=== PATIENT | female | born 1990 | race Hispanic/Latino ===

== ENCOUNTER 2023-05-18 04:45 | Observation (INO) | payer OTHER, SELFPAY ==
[2023-05-18 05:15] VITALS: BP 124/93; PULSE 80
[2023-05-18 05:25] VITALS: BMI 29.9
[2023-05-18 05:31] VITALS: BP 134/92; PULSE 79
[2023-05-18 05:46] VITALS: BP 132/83; PULSE 79
--- NOTE | 2023-05-18 06:00 | OBADM ---
This patient, Sanna Gilbert, admitted to the OB room Labor/Delivery/Recovery 105 for observation. Patient/family oriented to hospital policies and general routines including ID bracelet, bed and alarms, visiting hours, pain management, procedures, bathroom and other care routines, personal items, smoking policy, room service/diet, and visiting hours. Patient/Family are encouraged to report perceived risks to care and to ask questions if they do not understand what they are told or what they should do.
[2023-05-18 06:01] VITALS: BP 118/78; PULSE 86
[2023-05-18 06:15] VITALS: BP 133/96; PULSE 98
--- NOTE | 2023-06-04 00:07 | PM.OBTRLD ---
OB - Triage/Final Diagnosis Visit Information Comments/Additional reasons for admission: I have assessed the risk for this patient, Sanna Wisefederica Gilbert, and determined that she would benefit from observation care. Final Diagnosis (1) False labor: Code(s): O47.9 - False labor, unspecified Status: Acute
== END 2023-05-18 06:25 | disposition home or self-care (01) ==
PROVIDERS: Admitting Provider Obstetrics & Gynecology; Visit Provider Obstetrics & Gynecology
DX: O47.1 False labor at or after 37 completed weeks of gestation (principal); Z3A.38 38 weeks gestation of pregnancy
CPT/HCPCS: G0378; G0379

== ENCOUNTER 2023-05-29 05:18 | Inpatient (IN) | payer OTHER, SELFPAY ==
[2023-05-29] VITALS (89 sets, daily range): BP systolic 68–152; BP diastolic 47–91; PULSE 63–123; RESP 18; TEMP 36.1–37; O2SAT 84–100; BMI 33.6
[2023-05-29] MEDS: AMPICILLIN 2 GM/NS 100 ML 2 GM/100 ML BAG IVPB (07:06)
[2023-05-29] MEDS: LACTATED RINGERS 1,000 ML 125 ML IV CONT ×2 (07:08→10:00)
[2023-05-29 07:09] LABS: Basophils Percent Auto 0.3 % (0.2-1.2); Eosinophils Percent Auto 0.2 % (0-4.4); Hematocrit 36.1 % (37.0-47.0); Hemoglobin 11.9 g/dL (12.0-15.0); Immature Granulocyte Absolute 0.04 K/mm3 (0.00-0.031); Immature Granulocyte Percent A 0.4 % (0-0.5); Lymphocytes Absolute Auto 1.79 K/mm3 (0.9-3.2); Lymphocytes Percent Auto 18.8 % (18.3-44.2); Mean Corpuscular Hemoglobin 30.1 pg (26-34); Mean Corpuscular Volume 91.2 fl (80-100); Mean Platelet Volume 10.4 fl (7.4-10.4); Monocytes Absolute Auto 0.5 K/mm3 (0.1-0.6); Monocytes Percent Auto 4.7 % (2.6-8.5); Neutrophils Absolute Auto 7.2 K/mm3 (1.3-6.7); Neutrophils Percent Auto 75.6 % (45.5-73.1); Platelet Count Result 258 k/mm3 (150-375); Red Blood Count 3.96 M/mm3 (4.2-5.4); White Blood Count 9.5 K/mm3 (4.5-10.0)
--- NOTE | 2023-05-29 07:29 | LDADM ---
This patient, Sanna Gilbert, was admitted to Labor/Delivery/Recovery 104 on 05/29/23 at 05:19. Plans for labor, pain management and were discussed with patient. Patient/family oriented to hospital policies and general routines including ID bracelet, bed and alarms, visiting hours, pain management, procedures, bathroom and other care routines, personal items, smoking policy, room service/diet and guest tray routines, infant security routines, and visiting hours. Patient/Family are encouraged to report perceived risks to care and to ask questions if they do not understand what they are told or what they should do. See OBIX for further documentation.
[2023-05-29 07:32] LABS: Alanine Aminotransferase 19 U/L (6-35); Albumin Level 3.7 g/dL (3.5-5.1); Alkaline Phosphatase 161 U/L (38-126); Anion Gap 6 mmol/L (8-16); Aspartate Amino Transferase 31 U/L (14-36); Bilirubin,Total 0.5 mg/dL (0.2-1.3); Blood Urea Nitrogen 7 mg/dL (7-17); Calcium 8.9 mg/dL (8.4-10.2); Carbon Dioxide 22 mmol/L (22-30); Chloride 105 mmol/L (98-107); Estimated Glomerular Filt Rate > 60; Glucose 84 mg/dL (65-110); Potassium 4.3 mmol/L (3.4-5.0); Sodium 133 mmol/L (137-145)
[2023-05-29 08:00] LABS: HIV 1/2 Ab P24 Ag Result Negative (Negative)
--- NOTE | 2023-05-29 08:21 | WPDANESEPP ---
Anes - Eval Pre Procedure Procedure: labor pain management Date/Time: 05/29/23 08:21 Surgeon: Zhou Preop Diagnosis: pain during labor Pre Op Diagnosis: contractions Patient Data Age: 32 Gender: F Height: 1.52 m Weight: 78.1 kg Last Vital Signs Pulse 77 05/29/23 08:14 BP 118/79 05/29/23 08:14 Pulse Ox 97 05/29/23 08:13 Allergies Allergy/AdvReac Type Severity Reaction Status Date / Time No Known Allergies Allergy Verified 05/29/23 07:05 Home Medications Medication Instructions Recorded Confirmed Type ferrous sulfate 325 mg (65 mg 325 mg PO DAILY 05/29/23 05/29/23 History iron) capsule,extended release folic acid 1 mg tablet 1 mg PO DAILY 05/29/23 05/29/23 History vit no.133-ferrous 1 tablet PO DAILY 05/29/23 05/29/23 History fumarate 28 mg-folic acid 800 mcg tablet () Laboratory Tests 05/29/23 07:01 WBC 9.5 K/mm3 (4.5-10.0) RBC 3.96 L M/mm3 (4.2-5.4) Hgb 11.9 L g/dL (12.0-15.0) Hct 36.1 L % (37.0-47.0) MCV 91.2 fl (80-100) MCH 30.1 pg (26-34) MCHC 33.0 g/dl (32-36) RDW 14.0 % (11.5-14.5) Plt Count 258 k/mm3 (150-375) MPV 10.4 fl (7.4-10.4) Immature Gran % (Auto) 0.4 % (0-0.5) Neut % (Auto) 75.6 H % (45.5-73.1) Lymph % (Auto) 18.8 % (18.3-44.2) [place] % (Auto) 4.7 % (2.6-8.5) Eos % (Auto) 0.2 % (0-4.4) Baso % (Auto) 0.3 % (0.2-1.2) Lymph # (Auto) 1.79 K/mm3 (0.9-3.2) [place] # (Auto) 0.5 K/mm3 (0.1-0.6) Eos # (Auto) 0.0 K/mm3 (0-0.3) Baso # (Auto) 0.0 K/mm3 (0.0-0.1) Abs Immat Gran (auto) 0.04 H K/mm3 (0.00-0.031) Absolute Neuts (auto) 7.2 H K/mm3 (1.3-6.7) Absolute Nucleated RBC 0.0 K/mm3 (0.0-0.012) Nucleated RBC % 0.0 % (0.0-0.2) Sodium 133 L mmol/L (137-145) Potassium 4.3 mmol/L (3.4-5.0) Chloride 105 mmol/L (98-107) Carbon Dioxide 22 mmol/L (22-30) Anion Gap 6 L mmol/L (8-16) BUN 7 mg/dL (7-17) Creatinine 0.40 L mg/dL (0.7-1.0) Estim Creat Clear Calc Not Reportable Estimated GFR > 60 (59 - ) Glucose 84 mg/dL (65-110) Calcium 8.9 mg/dL (8.4-10.2) Total Bilirubin 0.5 mg/dL (0.2-1.3) AST 31 U/L (14-36) ALT 19 U/L (6-35) Alkaline Phosphatase 161 H U/L (38-126) Total Protein 7.0 g/dL (6.3-8.2) Albumin 3.7 g/dL (3.5-5.1) RPR Pending Hep Bs Antigen Pending HIV 1&2 Ab/P24 Ag 4thGn Negative (Negative) Rubella IgG Antibody Pending Blood Type B Positive Antibody Screen Negative Patient hx anesthesia problems: none Family hx anesthesia problems: none Results Review: All pre-operative results and documents have been reviewed as part of the pre-operative evaluation. [facility] Past Medical History Medical History Social History Social History Smoking status: Never smoker Second hand tobacco smoke exposure: No Substance use: never Lack of Transportation: No Lack of Food: Sometimes True Current Housing: I Have Housing Concerned About Future Housing: No Difficulty Paying Gas/Electric Bills: Decline to Answer Difficulty Paying for Meds: Decline to Answer Currently Unemployed: No Education: Decline to Answer Difficulty w/ Childcare or Family Care: Decline to Answer Spiritual care concerns: No Comments pt does not speak Frisian, no record available. previous epidural in [place]. 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 Exam Day of Procedure 05/29/23 08:21
[2023-05-29 08:36] LABS: Rapid Plasma Reagin Non-Reactive (NonReactive)
[2023-05-29 08:38] LABS: Hepatitis B Surface Antigen Negative (Negative)
[2023-05-29] MEDS: OXYTOCIN 30 UNITS/NS 500 ML 30 UNITS/500 ML BAG 999 UNITS IV CONT (11:06)
[2023-05-29] MEDS: OXYTOCIN 10 UNITS/ML VIAL (11:18)
--- NOTE | 2023-05-29 11:25 | P.HP_ITS ---
Obstetrics - Admit Note Admission Note: record reviewed. Additions to the history and/or subsequent changes in the physical findings follow. 32 y/o at 40 3/7 weeks gestation here with contractions. care at [facility] in [place]. That group does not deliver at [facility], and I am the regional vice president surgical sales physician for walk-in patients. Now comfortable with epidural. Just had SROM of clear fluid. GBS reportedly neg. AVSS NST reactive TOCO: contractions every 2-3 min ABD soft, nontender, gravid, vertex EXT nontender Pelvic: Cervix 6 cm on admission, 7 cm after epidural. Gross ROM. A: IUP at term with labor. P: Anticipate .
--- NOTE | 2023-05-29 11:25 | PM.OBPRVD ---
OB - Delivery Note Procedure Delivery date: 05/29/23 Procedure: Induction method: None Delivery monitor: External FHT and External Uterine Route of delivery: Laceration Description: Perineal - 2nd Degree Delivery repair: vicryl (3-0) Specimen: Yes (cord blood) Quantitative Blood Loss (ml): 220 Anesthesia type: Epidural Disposition: PACU Complications: None Narrative: 32 y/o at 40 3/7 weeks gestation who presented to the hospital as a walk-in patient complaining of contractions. Labor was diagnosed. She had SROM with clear fluid. She received an epidural for pain control. Her labor progressed and her cervix dilated completely. She pushed with good effort and delivered the 's head to the perineum, followed by the body. The nose and mouth were bulb suctioned. After a delay, the cord was clamped and cut. The infant was handed off the field. Cord blood was collected. The placenta delivered spontaneously and was grossly normal in appearance. The usual 3 vessel cord was noted. A second degree midline perineal laceration was sustained. This was reapproximated using 3 0 Vicryl in the usual layered fashion. Excellent hemostasis resulted as did excellent reapproximation of the normal anatomy. Needle and instrument counts were correct. The patient was taken to recovery room in stable condition. The infant went to the nursery in stable condition. I was present and scrubbed for the entire delivery. Baby Date of : 05/29/23 Time of : 11:02 Weeks of gestation at delivery: 40 Infant gender: Female Weight (pounds): 7 Weight (ounces): 5 presentation: vertex position: Left Occiput Anterior Placenta delivery description: Spontaneous and Normal Configuration Cord Vessel Description: 3 Vessels and Delayed Cord Clamping score one minute: 9 score five minutes: 9
--- NOTE | 2023-05-29 13:40 | OBPPTRN ---
Patient transferred to post room # 280 via wheelchair accompanied by spouse and . PT introductions made and plan of care discussed per post , pain management, breast feeding, daily care activities. PT and spouse both recipients of such instructions and language is a barrier to receiving instructions. Both patient and spouse speak little or no Guamanian. PT received such instructions via stratus language line. Both patient and spouse verbalized understanding of such care. Oriented to unit, room, information board, rooming in, admission packet and security measures. Patient verbalizes understanding.
[2023-05-29] MEDS: IBUPROFEN 600 MG TABLET PO (14:30)
[2023-05-29] MEDS: ACETAMINOPHEN 325 MG TABLET 650 MG PO (14:31)
[2023-05-30] MEDS: IBUPROFEN 600 MG TABLET PO ×2 (04:03→10:37)
[2023-05-30] MEDS: ACETAMINOPHEN 325 MG TABLET 650 MG PO ×2 (04:04→10:36)
[2023-05-30 04:30] VITALS: BP 93/59; PULSE 90; RESP 18; TEMP 36.6; O2SAT 96
[2023-05-30 05:18] LABS: Hematocrit 30.5 % (37.0-47.0); Hemoglobin 10.1 g/dL (12.0-15.0)
--- NOTE | 2023-05-30 07:30 | WPDANLDPN2 ---
Anes-Prog Note L&D Date/Time: 05/30/23 07:30 Comfortable throughout: labor and delivery Neuraxial method: epidural Epidural/Spinal procedure site: clean & non-tender Neuro status: Neuro function grossly intact. Cardiovascular status: normal Respiratory status: normal Airway patency: baseline Mental status: baseline Post-Op hydration status: normal Vital Signs: Last Vital Signs Temp 36.6 C 05/30/23 04:30 Pulse 90 05/30/23 04:30 Resp 18 05/30/23 04:30 BP 93/59 L 05/30/23 04:30 Pulse Ox 96 05/30/23 04:30 O2 Del Method Room Air 05/30/23 04:30 Pain score (VAS): no complaints I/O: Intake & Output 05/29/23 05/29/23 05/30/23 15:59 23:59 07:59 Intake Total 1630 Output Total 820 Balance 810 Post-procedural complaints: none Patient feedback: Patient satisfied with anesthetic care.
[2023-05-30] MEDS: DOCUSATE SODIUM 100 MG CAPSULE PO (08:06)
[2023-05-30] MEDS: MULTIVIT/MIN/PREN/FOL AC/IRON TABLET 1 TAB PO (08:06)
[2023-05-30 09:15] VITALS: BP 103/59; PULSE 82; RESP 18; TEMP 37.2; O2SAT 97
--- NOTE | 2023-05-30 10:21 | PC.NURSE ---
Reported received from Stephanie BAUTISTA. Mother is . Primary RN will consult with LC if needed.
--- NOTE | 2023-05-30 11:57 | PM.OBPNVD ---
OB - PN: Subj Subjective Date/time seen: 05/30/23 11:57 Narrative: Communicated using the food service manager service. Pain OK. Would like to go home. She has taken sertraline in the past for depression. Feels fine emotionally today. OB - PN: Obj Data Labs 05/30/23 05:10 05/29/23 07:01 Labs: Laboratory Results - last 24 hr 05/30/23 05:10 Hgb 10.1 L Hct 30.5 L OB - PN A/P Plan day: 1 Comments: A: PPD#1, doing well. P: Resume treatment with sertraline 50 mg daily. Home to f/u 6 weeks. Exam Psych: Other: AVSS ABD soft, nontender, fundus firm EXT nontender
--- NOTE | 2023-05-30 12:06 | PM.OBDSVD ---
DS: Admitting Diagnosis Discharge Date 05/30/23 Admitting Diagnosis IUP at term Labor DS: Discharge Diagnosis Discharge Diagnosis (1) (normal spontaneous vaginal delivery): Code(s): O80 - Encounter for full-term uncomplicated delivery Status: Acute OB - DS: Summary OB Procedures : None OB Procedures Intrapartum: Spontaneous Vag Delivery OB Procedures: : None Time Spent with Patient Time attestation: Total time spent providing and/or coordinating discharge services: DS: Data Data Completed and Pending Labs on day of discharge: Labs from last 24 hours 05/30/23 05:10 Hgb 10.1 L Hct 30.5 L Discharge Plan Discharge Attending physician on discharge: Adonay Epperson Discharging Clinician: Adonay Epperson Patient Disposition: Home, Self-Care Activity: pelvic rest Diet: regular Discharge Instructions: Call or return if temperature above 100.4? F, increased abdominal pain, increased vaginal bleeding or any new problems. Stand Alone Forms: General Discharge Information Follow-up/Referrals: Adonay Epperson MD [Physician] - 6 Weeks Discharge Medications: New ibuprofen 600 mg tablet 600 mg PO Q6H PRN (Reason: cramps) Qty: 30 0RF sertraline 50 mg tablet 50 mg PO DAILY Qty: 30 1RF Continued folic acid 1 mg Tablet 1 mg PO DAILY ferrous sulfate 325 mg (65 mg iron) Capsule, Extended Release 325 mg PO DAILY 28-800 mg-mcg Tablet 1 tablet PO DAILY Date of admission: 05/29/23 05:19 Primary Care Provider: PHYSICIAN,STAFF ELECTRICAL ENGINEER Admitting Provider: Adonay Epperson Attending physician on admission: Adonay Epperson Condition: Stable
[2023-06-02 09:38] VITALS: BP 121/78; PULSE 97; RESP 20; TEMP 36.8; O2SAT 100
== END 2023-05-30 15:10 | disposition home or self-care (01) | DRG 560 ==
LOC: ANHLDR 06:55 → ANHOB2 13:43
PROVIDERS: Admitting Provider Obstetrics & Gynecology; Visit Provider Obstetrics & Gynecology
DX: O70.1 Second degree perineal laceration during delivery (principal); Z37.0 Single live birth; O99.344 Other mental disorders complicating childbirth; F32.A Depression, unspecified; Z3A.40 40 weeks gestation of pregnancy
CPT/HCPCS: 36415; 80053; 85014; 85018; 85025; 86592; 86703; 86762; 86850; 86900; 86901; 87340; A9270; G0432; J0290; J2590; J2795; J7120